=== PATIENT | male | born 1975 | race Caucasian/White ===

== ENCOUNTER 2016-12-25 19:14 | Inpatient (IN) | payer OTHER ==
[~2016-12-25] VITALS: Ht 167.6 cm; Wt 92.9 kg
[2016-12-25] MEDS ORDERED: NS 1,000 ML IV ONE (21:00)
[2016-12-25] MEDS ORDERED: ONDANSETRON 4MG/2ML VIAL (J2405) IV ONE (21:00)
[2016-12-25] MEDS ORDERED: MORPHINE 4 MG/ML 1ML SYRINGE IV PRN (21:00)
[2016-12-25 21:20] LABS: BASO % 0.2 % (0.0-1.0); EOS # 0.1 10^3/uL (0.0-0.50); EOS % 0.6 % (0.0-3.0); IMMATURE GRANULOCYTE % 0.6 % (0-0); LYMPH % 6.6 % (24.0-44.0); MEAN CORPUSCULAR HEMOGLOBIN 30.8 pg (27.0-33.0); MEAN CORPUSCULAR VOLUME 90.3 fl (80.0-96.0); MONO # 1.1 10^3/uL (0.0-0.8); MONO % 7.4 % (0.0-5.0); NEUTROPHILS # 12.2 10^3/uL (1.8-7.7); NEUTROPHILS % 84.6 % (36.0-66.0); PLATELET COUNT, AUTOMATED 280 10^3/uL (150-450); RED CELL DISTRIBUTION WIDTH 12.9 % (11.5-14.5); WHITE BLOOD COUNT 14.4 10^3/uL (4.0-10.0)
[2016-12-25 21:41] LABS: ALBUMIN 3.8 GM/DL (3.2-5.2); ALBUMIN/GLOBULIN RATIO 0.81 (1.00-1.93); ALKALINE PHOSPHATASE 98 U/L (45-117); ALT/SGPT 41 U/L (12-78); ANION GAP 8 MEQ/L (8-16); AST/SGOT 14 U/L (15-37); BILIRUBIN,DIRECT 0.4 MG/DL (0.0-0.2); BLOOD UREA NITROGEN 13 MG/DL (7-18); CALCIUM LEVEL 9.1 MG/DL (8.5-10.1); CARBON DIOXIDE LEVEL 28 MEQ/L (21-32); CHLORIDE LEVEL 97 MEQ/L (98-107); CREATININE FOR GFR 0.92 MG/DL (0.70-1.30); GLOMERULAR FILTRATION RATE > 60.0 (>60); GLUCOSE, FASTING 79 MG/DL (70-105); POTASSIUM SERUM 3.5 MEQ/L (3.5-5.1); SODIUM LEVEL 133 MEQ/L (136-145); TOTAL PROTEIN 8.5 GM/DL (6.4-8.2)
[2016-12-25] MEDS ORDERED: ISOVUE-370 76% 100ML VIAL (Q9967) As Ordered ONE (22:07)
[2016-12-25] MEDS ORDERED: metroNIDAZOLE 500 MG in APPROPRIATE DILUENT 1 EA IV ONE (23:15)
[2016-12-25] MEDS ORDERED: CIPROFLOXACIN 400 MG in APPROPRIATE DILUENT 1 EA IV ONE (23:15)
[2016-12-25] MEDS ORDERED: TYLE325T5 PO (23:16)
[2016-12-25] MEDS ORDERED: IBUPOTC PO (23:16)
[2016-12-26] MEDS ORDERED: KETOROLAC 30 MG/ML VIAL (J1885) IV PRN
[2016-12-26] MEDS ORDERED: NORCO, ANEXSIA 5/325MG TABLET (HYDROcodone/ACETAMINOPHEN) PO PRN
[2016-12-26] MEDS ORDERED: ERTAPENEM SODIUM 1 GM in NS MINI-BAG PLUS 50 ML IV SCH ×2
[2016-12-26] MEDS ORDERED: MORPHINE 2 MG/ML 1ML SYRINGE IV PRN
[2016-12-26] MEDS: ERTAPENEM SODIUM 1 GM in NS MINI-BAG PLUS 50 ML IV SCH ×2
[2016-12-26] MEDS ORDERED: ONDANSETRON 4MG/2ML VIAL (J2405) IV PRN
[2016-12-26] MEDS ORDERED: ACETAMINOPHEN TAB 650MG DOSE (2X325MG) PO PRN
[2016-12-26 01:01] VITALS: BP 129/79
[2016-12-26] MEDS: LR 1,000 ML IV SCH ×4 (01:17→18:10)
[2016-12-26] MEDS: HEPARIN SOD (PORCINE) 5000 UNITS/ML VIAL SC SCH ×3 (05:22→21:03)
[2016-12-26 06:00] VITALS: BP 107/67
[2016-12-26 06:12] LABS: BASO % 0.2 % (0.0-1.0); EOS # 0.1 10^3/uL (0.0-0.50); EOS % 1.1 % (0.0-3.0); IMMATURE GRANULOCYTE % 0.8 % (0-0); LYMPH # 0.9 10^3/uL (1.5-4.5); MEAN CORPUSCULAR HGB CONC 34.4 g/dl (32.0-36.5); MEAN CORPUSCULAR VOLUME 90.3 fl (80.0-96.0); MONO % 8.2 % (0.0-5.0); NEUTROPHILS # 10.4 10^3/uL (1.8-7.7); NEUTROPHILS % 82.7 % (36.0-66.0); PLATELET COUNT, AUTOMATED 256 10^3/uL (150-450); WHITE BLOOD COUNT 12.5 10^3/uL (4.0-10.0)
[2016-12-26 06:35] LABS: ANION GAP 8 MEQ/L (8-16); BLOOD UREA NITROGEN 10 MG/DL (7-18); CALCIUM LEVEL 8.3 MG/DL (8.5-10.1); CARBON DIOXIDE LEVEL 25 MEQ/L (21-32); CHLORIDE LEVEL 104 MEQ/L (98-107); CREATININE FOR GFR 0.78 MG/DL (0.70-1.30); GLOMERULAR FILTRATION RATE > 60.0 (>60); GLUCOSE, FASTING 83 MG/DL (70-105); POTASSIUM SERUM 3.8 MEQ/L (3.5-5.1); SODIUM LEVEL 137 MEQ/L (136-145)
[2016-12-26] MEDS: PANTOPRAZOLE 40MG INJ (PROTONIX) (C9113) IV SCH ×2 (08:36→20:22)
[2016-12-26] MEDS: SENOKOT S TAB PO SCH ×2 (08:36→20:22)
--- NOTE | 2016-12-26 13:04 | HPE ---
DATE OF ADMISSION: 12/25/2016 CHIEF COMPLAINT: Left lower quadrant pain. HISTORY OF PRESENT ILLNESS: Patient is a 41-year-old male presents with a history of left lower quadrant pain, for the past couple days. Pain has been getting continually worse. Denies any nausea, vomiting. No fevers or chills. No change in bowel movements or urination. No blood in the stool. He has never had any episodes like this in the past. No previous colonoscopy or known history of any colon problems in himself or his family. In the emergency room (ER), he had signs of a perforated sigmoid colon with a contained perforation, no abscess. Therefore, I was called to evaluate. He was admitted overnight. This morning, his pain is already improving with intravenous (IV) antibiotics, again, no nausea or vomiting or any problems with bowel movements or urination. No recent trauma or travel, and no previous episodes like this. PAST MEDICAL HISTORY: Negative. PAST SURGICAL HISTORY: Negative. ALLERGIES: PENICILLIN. HOME MEDICATIONS: None. SOCIAL HISTORY: Denies drug, alcohol, tobacco usage. FAMILY HISTORY: Noncontributory. REVIEW OF SYSTEMS: Pertinent positives and negatives stated in history of present illness (HPI). PHYSICAL EXAM: Generally, alert and oriented times three. No acute distress. VITAL SIGNS: Stable. Temperature 98.2, pulse 72, respirations 18, blood pressure 107/67, pulse oximetry 99% on room air. HEENT: Pupils equally round and reactive to light and accommodation. HEART: S1, S2. Regular rate and rhythm. LUNGS: Clear to auscultation bilaterally. ABDOMEN: Soft, nontender, nondistended. Bowel sounds positive. EXTREMITIES: No clubbing, cyanosis, or edema. LABS: White count 14.4 down to 12.5, hemoglobin 12.1, platelets 256, lactic acid 0.9, potassium 3.8. IMAGING: CT abdomen and pelvis demonstrates a slight pericolonic inflammation in the sigmoid colon with a few air bubbles all contained to the area. No signs of any free air throughout the rest of the abdomen. No signs of any phlegmon or abscess formation. ASSESSMENT/PLAN: Patient is a 41-year-old male with a contained complicated diverticulitis with a sigmoid perforation. Currently, he is tolerating medical management appropriately with intravenous (IV) fluids and antibiotics. On exam, he is almost completely nontender. Recommendation at this time is to start him on a clear liquid diet. As long as he continues to improve, by tomorrow, his white count comes down and he continues to have no pain, he will be discharged home tomorrow on a low-residue, low-fiber diet for 2 weeks and then will followup with me in the office in 2 weeks. We will switch him to a high-fiber diet and plan for an elective outpatient colonoscopy to confirm the diagnosis of diverticulosis. I explained the entire pathophysiology of diverticulosis and diverticulitis to him as well as the elective surgical options if this were to persist in the future. He understands and all of his questions were answered.
[2016-12-26 14:00] VITALS: BP 124/77
--- NOTE | 2016-12-26 15:38 | REP ---
Clinical: Acute right lower quadrant pain. Technique: Axial contrast enhanced images from the lung bases to the pubic symphysis using 100 ml Isovue 370 intravenous contrast material with coronal and sagittal re-formations. Findings: Sigmoid diverticulitis with contained perforation is appreciated (images 97 - 120). Findings include mural thickening to the midsigmoid colon at the site of diverticula with pericolonic inflammatory stranding and focal contained free air (images 105 - 110). No ascites or drainable collection/abscess identified. The remainder of the enteric system is without further acute process. A normal terminal ileum and appendix are identified in the right lower quadrant. Liver, spleen, pancreas, gallbladder, bilateral adrenal glands and kidneys are normal. Pelvis demonstrates normal bladder and age appropriate prostate/seminal vesicles. No pelvic fluid or ascites. No free air. No significant adenopathy. Abdominal aorta and vasculature without aneurysm or dissection. Surrounding musculoskeletal structures demonstrate age-related degenerative changes along with chronic L5 spondylolysis without spondylolisthesis. Lung bases are clear. Impression: 1. Acute perforated sigmoid diverticulitis with focal contained perforation/free air in the mesentery. No diffuse pneumoperitoneum, ascites or drainable collection/abscess. No bowel obstruction. 2. Chronic L5 spondylolysis without spondylolisthesis. Signed by Chalino Calvillo MD 12/26/2016 03:30 P
[2016-12-26 22:00] VITALS: BP 116/79
[2016-12-27] MEDS: ERTAPENEM SODIUM 1 GM in NS MINI-BAG PLUS 50 ML IV SCH ×2
[2016-12-27] MEDS: LR 1,000 ML IV SCH (04:06)
[2016-12-27] MEDS: HEPARIN SOD (PORCINE) 5000 UNITS/ML VIAL SC SCH (05:59)
[2016-12-27 06:00] VITALS: BP 117/83
[2016-12-27 06:12] LABS: MEAN CORPUSCULAR VOLUME 91.3 fl (80.0-96.0); PLATELET COUNT, AUTOMATED 315 10^3/uL (150-450); WHITE BLOOD COUNT 8.4 10^3/uL (4.0-10.0)
[2016-12-27 06:23] LABS: ANION GAP 7 MEQ/L (8-16); BLOOD UREA NITROGEN 7 MG/DL (7-18); CALCIUM LEVEL 8.6 MG/DL (8.5-10.1); CARBON DIOXIDE LEVEL 27 MEQ/L (21-32); CHLORIDE LEVEL 104 MEQ/L (98-107); GLOMERULAR FILTRATION RATE > 60.0 (>60); GLUCOSE, FASTING 91 MG/DL (70-105); POTASSIUM SERUM 3.8 MEQ/L (3.5-5.1); SODIUM LEVEL 138 MEQ/L (136-145)
[2016-12-27] MEDS ORDERED: INFLUENZA QUADRIVALENT PF VACCINE 0.5ML SYRINGE (90686) IM ONE (09:00)
[2016-12-27] MEDS: SENOKOT S TAB PO SCH (09:22)
[2016-12-27] MEDS: PANTOPRAZOLE 40MG INJ (PROTONIX) (C9113) IV SCH (09:22)
[2016-12-27] MEDS ORDERED: CIPR500T19 PO (09:42)
[2016-12-27] MEDS ORDERED: FLAG500T PO (09:42)
--- NOTE | 2016-12-28 13:15 | DSES ---
DATE OF ADMISSION: 12/25/2016 DATE OF DISCHARGE: 12/27/2016 ADMISSION DIAGNOSIS: Complicated diverticulitis. DISCHARGE DIAGNOSIS: Complicated diverticulitis. HOSPITAL COURSE: The patient is a 41-year-old male who presents on 12/25 with a chief complaint of sharp left lower quadrant pain. He was found to have a white count of 14.4 in the emergency room, as well as a CT scan that sure contained perforation of the sigmoid colon with diverticulitis and no signs of any abscess or phlegmon formation. He was admitted to the hospital that evening. I saw him in the morning of the . By this point, his pain was significantly improved and his white count was down to 12.5. He was on IV antibiotics and nothing by mouth and had no other complaints of any other symptoms. I did start him on a clear liquid diet and advised that he continue to get up and walk around, kept him on IV fluids and IV antibiotics. By the next morning, 12/27, his pain was almost completely resolved, tolerating diet, white count returned back to 8.4, passing gas. No bowel movement yet, but he was feeling very well. I had a discussion with him about staying on a low fiber, low residue diet for the next 2 weeks and then we would switch him to high fiber diet. He will be discharged home today with oral antibiotics to take for a week and then he will followup with me in the office in 2 weeks to be switched to his high fiber diet and also to schedule an outpatient elective colonoscopy to confirm the diagnosis of diverticulosis. All questions were answered. He was advised to call the office with any questions or any changes in his symptoms upon discharge.
== END 2016-12-27 11:30 | disposition home or self-care (01) | DRG 244 ==
LOC: M ED 19:14 → M ED INP 23:56 → M MSPAV 12-26 01:01
PROVIDERS: ADMIT Surgery; ATTEND Surgery
DX: K57.20 Diverticulitis of large intestine with perforation and abscess without bleeding (principal)

== ENCOUNTER 2017-02-02 08:21 | Day surgery (SDC) | payer OTHER ==
[~2017-02-02] VITALS: Ht 167.6 cm; Wt 87.1 kg
[~2017-02-02 08:21] MED LIST: CIPR500T19 PO; FLAG500T PO; IBUPOTC PO; TYLE325T5 PO
[2017-02-02] MEDS ORDERED: NS 1,000 ML IV ONE (08:30)
[2017-02-02] MEDS ORDERED: LIDOCAINE 2% INJ 100 MG/5 ML SDV (FOR ANES.) As Ordered ONE (09:14)
[2017-02-02] MEDS ORDERED: PROPOFOL 200 MG/20 ML VIAL As Ordered ONE ×2 (09:14→09:32)
--- NOTE | 2017-02-02 09:37 | ROOR ---
Patient Name: Kenneth Bates Procedure Date: 02/02/2017 9:12 AM Date of : 1975 Age: 41 Room: [id number] Gender: Male Note Status: Finalized Procedure: Colonoscopy Indications: Suspected diverticulitis Providers: Virgil Perez DO Referring MD: 1. No Referring Physician 1. No Referring Physician, Admin. Requesting Provider: Medicines: Propofol per Anesthesia Complications: No immediate complications. Procedure: Pre-Anesthesia Assessment: - Prior to the procedure, a History and Physical was performed, and patient medications and allergies were reviewed. The patient is competent. The risks and benefits of the procedure and the sedation options and risks were discussed with the patient. All questions were answered and informed consent was obtained. Patient identification and proposed procedure were verified by the physician, the nurse, the anesthesiologist and the guitar repair technician in the endoscopy suite. Mental Status Examination: alert and oriented. Airway Examination: normal oropharyngeal airway and neck mobility. Respiratory Examination: clear to auscultation. CV Examination: normal. Prophylactic Antibiotics: The patient does not require prophylactic antibiotics. Prior Anticoagulants: The patient has taken no previous anticoagulant or antiplatelet agents. ASA Grade Assessment: I - A normal, healthy patient. After reviewing the risks and benefits, the patient was deemed in satisfactory condition to undergo the procedure. The anesthesia plan was to use monitored anesthesia care (MAC). Immediately prior to administration of medications, the patient was re-assessed for adequacy to receive sedatives. The heart rate, respiratory rate, oxygen saturations, blood pressure, adequacy of pulmonary ventilation, and response to care were monitored throughout the procedure. The physical status of the patient was re-assessed after the procedure. The Colonoscope was introduced through the anus and advanced to the cecum, identified by appendiceal orifice and ileocecal valve. The colonoscopy was performed without difficulty. The patient tolerated the procedure well. Findings: An area of moderately congested mucosa was found in the sigmoid colon. Biopsies for histology were taken with a cold forceps from the sigmoid colon for evaluation of microscopic colitis. Estimated blood loss was minimal. The exam was otherwise without abnormality on direct and retroflexion views. Impression: - Congested mucosa in the sigmoid colon. Biopsied. - The examination was otherwise normal on direct and retroflexion views. Recommendation: - Patient has a contact number available for emergencies. The signs and symptoms of potential delayed complications were discussed with the patient. Return to normal activities tomorrow. Written discharge instructions were provided to the patient. - Telephone my office for pathology results in 1 week. Virgil Perez DO 02/02/2017 9:36:57 AM This report has been signed electronically. Number of Addenda: 0 Note Initiated On: 02/02/2017 9:12 AM Estimated Blood Loss: Estimated blood loss was minimal.
[2017-02-02 09:50] VITALS: BP 140/102
== END 2017-02-02 10:08 | disposition home or self-care (01) ==
LOC: M OPP 08:21
PROVIDERS: ATTEND Surgery
DX: K57.32 Diverticulitis of large intestine without perforation or abscess without bleeding (principal); K63.89 Other specified diseases of intestine; R10.32 Left lower quadrant pain; R19.7 Diarrhea, unspecified; R12 Heartburn; K21.9 Gastro-esophageal reflux disease without esophagitis; Z88.0 Allergy status to penicillin

== ENCOUNTER → 2017-07-12 | Outpatient (CLI) | payer OTHER | LOC: M ADAMS 15:47 | DX: S60.221A Contusion of right hand, initial encounter (principal) | CPT/HCPCS: 73130 ==

== ENCOUNTER → 2017-12-11 | Outpatient (CLI) | payer OTHER | LOC: M ADAMS 15:51 | DX: M25.572 Pain in left ankle and joints of left foot (principal) | CPT/HCPCS: 73610 ==

== ENCOUNTER 2022-09-02 19:51 | Emergency (ER) | payer OTHER ==
[~2022-09-02] VITALS: Ht 167.6 cm; Wt 97.2 kg
[2022-09-02] MEDS ORDERED: ISOVUE-370 76% 100ML VIAL As Ordered ONE (21:43)
[2022-09-02 22:24] LABS: BASO % 0.2 % (0.0-1.0); EOS # 0.2 10^3/uL (0.0-0.5); EOS % 1.4 % (0.0-3.0); HEMATOCRIT 43.2 % (42.0-52.0); HEMOGLOBIN 14.7 g/dl (13.5-17.5); LYMPH # 1.6 10^3/uL (1.5-5.0); LYMPH % 11.9 % (24.0-44.0); MEAN CORPUSCULAR HEMOGLOBIN 31.1 pg (27.0-33.0); MEAN CORPUSCULAR VOLUME 91.3 fl (80.0-96.0); MONO # 1.1 10^3/uL (0.0-0.8); MONO % 8.7 % (2.0-8.0); NEUTROPHILS # 10.2 10^3/uL (1.5-8.5); NEUTROPHILS % 77.4 % (36.0-66.0); PLATELET COUNT, AUTOMATED 296 10^3/uL (150-450); RED BLOOD COUNT 4.73 10^6/uL (4.30-6.10); WHITE BLOOD COUNT 13.1 10^3/uL (4.0-10.0)
[2022-09-02 22:40] LABS: ALBUMIN 4.2 G/DL (3.2-5.2); BILIRUBIN,DIRECT 0.4 MG/DL (<0.4); BILIRUBIN,TOTAL 1.2 MG/DL (0.3-1.2); TOTAL PROTEIN 7.3 G/DL (5.7-8.2)
[2022-09-02] MEDS ORDERED: metroNIDAZOLE (FLAGYL) 500MG TABLET PO ONE (23:30)
[2022-09-02] MEDS ORDERED: CIPROFLOXACIN 500MG TABLET PO ONE (23:30)
[2022-09-02] MEDS ORDERED: METR-265 PO (23:31)
[2022-09-02] MEDS ORDERED: CIPR-249 PO (23:31)
[2022-09-02 23:46] VITALS: BP 146/78; TEMP 98.8; O2SAT 98
== END 2022-09-02 23:50 | disposition home or self-care (01) ==
LOC: M ED 19:51
DX: K57.32 Diverticulitis of large intestine without perforation or abscess without bleeding (principal); K21.9 Gastro-esophageal reflux disease without esophagitis; Z87.442 Personal history of urinary calculi; Z87.19 Personal history of other diseases of the digestive system; Z88.0 Allergy status to penicillin
CPT/HCPCS: 74177; 80047; 80076; 81001; 83690; 85025; 99284; Q9967

== ENCOUNTER 2023-02-25 12:30 | Emergency (ER) | payer OTHER ==
[~2023-02-25] VITALS: Ht 167.6 cm; Wt 96.3 kg
[~2023-02-25 12:30] MED LIST changes: +CIPR-249 PO; +METR-265 PO
[2023-02-25 13:33] LABS: BASO % 0.2 % (0.0-1.0); EOS # 0.1 10^3/uL (0.0-0.5); EOS % 0.8 % (0.0-3.0); HEMATOCRIT 45.2 % (42.0-52.0); HEMOGLOBIN 15.3 g/dl (13.5-17.5); LYMPH # 1.7 10^3/uL (1.5-5.0); LYMPH % 10.9 % (24.0-44.0); MEAN CORPUSCULAR HEMOGLOBIN 31.2 pg (27.0-33.0); MEAN CORPUSCULAR HGB CONC 33.8 g/dl (32.0-36.5); MEAN CORPUSCULAR VOLUME 92.2 fl (80.0-96.0); MONO # 1.3 10^3/uL (0.0-0.8); MONO % 8.5 % (2.0-8.0); NEUTROPHILS # 12.3 10^3/uL (1.5-8.5); NEUTROPHILS % 79.2 % (36.0-66.0); PLATELET COUNT, AUTOMATED 315 10^3/uL (150-450); WHITE BLOOD COUNT 15.6 10^3/uL (4.0-10.0)
[2023-02-25 13:49] LABS: INR 1.02; PROTHROMBIN TIME 13.1 SECONDS (12.5-14.5)
[2023-02-25 13:50] LABS: PARTIAL THROMBOPLASTIN TIME 29.4 SECONDS (24.8-34.2)
[2023-02-25 13:53] LABS: LIPASE 27 U/L (12-53)
[2023-02-25 13:54] LABS: AMYLASE 57 U/L (30-118)
[2023-02-25 13:55] LABS: ALBUMIN 4.3 G/DL (3.2-5.2); ALKALINE PHOSPHATASE 86 U/L (46-116); ALT/SGPT 29 U/L (7.0-40); AST/SGOT 15 U/L (<34); BILIRUBIN,DIRECT 0.3 MG/DL (<0.4); BILIRUBIN,TOTAL 1.2 MG/DL (0.3-1.2); BLOOD UREA NITROGEN 11 MG/DL (9-23); CALCIUM LEVEL 9.6 MG/DL (8.5-10.1); CARBON DIOXIDE LEVEL 26 MMOL/L (20-31); CHLORIDE LEVEL 102 MMOL/L (98-107); CREATININE FOR GFR 0.73 MG/DL (0.70-1.30); GLOMERULAR FILTRATION RATE > 60.0 (>60); GLUCOSE, FASTING 99 MG/DL (60-100); POTASSIUM SERUM 4.1 MMOL/L (3.5-5.1); SODIUM LEVEL 138 MMOL/L (136-145); TOTAL PROTEIN 7.8 G/DL (5.7-8.2)
[2023-02-25] MEDS ORDERED: ISOVUE-370 76% 100ML VIAL As Ordered ONE (14:08)
[2023-02-25] MEDS ORDERED: KETOROLAC 30 MG/ML 1ML VIAL IV ONE (14:40)
[2023-02-25] MEDS ORDERED: LIDOCAINE 2% 5ML JELLY UROJET TOP ONE (14:40)
[2023-02-25] MEDS ORDERED: CIPROFLOXACIN 500MG TABLET PO ONE (16:15)
[2023-02-25] MEDS ORDERED: metroNIDAZOLE (FLAGYL) 500MG TABLET PO ONE (16:15)
[2023-02-25] MEDS ORDERED: METR-265 PO (16:25)
[2023-02-25] MEDS ORDERED: CIPR-249 PO (16:25)
[2023-02-25 17:37] VITALS: BP 159/85; TEMP 98.9; O2SAT 97
== END 2023-02-25 17:45 | disposition home or self-care (01) ==
LOC: M ED 12:30
DX: K57.32 Diverticulitis of large intestine without perforation or abscess without bleeding (principal); R33.9 Retention of urine, unspecified; Z88.0 Allergy status to penicillin; Z79.2 Long term (current) use of antibiotics; Z79.899 Other long term (current) drug therapy
CPT/HCPCS: 51702; 74177; 80048; 80076; 81001; 82150; 83605; 83690; 85025; 85610; 85730; 96374; 99284; J1885; Q9967

== ENCOUNTER → 2023-03-23 | Outpatient (REF) | payer OTHER ==
[2023-03-23 15:54] LABS: APPEARANCE, URINE CLEAR (CLEAR); BACTERIA, URINE AUTO NEGATIVE (NEGATIVE); BILIRUBIN, URINE AUTO NEGATIVE (NEGATIVE); BLOOD, URINE BLOOD 1+ (NEGATIVE); COLOR, URINE YELLOW (YELLOW); GLUCOSE, URINE (UA) AUTO NEGATIVE (NEGATIVE); KETONE, URINE AUTO NEGATIVE (NEGATIVE); LEUKOCYTE ESTERASE, URINE AUTO NEGATIVE (NEGATIVE); NITRITE, URINE AUTO NEGATIVE (NEGATIVE); PROTEIN, URINE AUTO NEGATIVE (NEGATIVE); RBC, URINE AUTO 1 /HPF (0-3); SPECIFIC GRAVITY URINE AUTO 1.024 (1.002-1.035); SQUAMOUS EPITHELIAL CELL UR AU 0 /HPF (0-6); UROBILINOGEN, URINE AUTO 0.2 mg/dL (0.0-2.0); WBC, URINE AUTO 0 /HPF (0-3)
== END ==
LOC: M SFHCWAGY 15:05
PROVIDERS: ATTEND Urology
DX: R31.29 Other microscopic hematuria (principal)

== ENCOUNTER → 2023-04-18 | Outpatient (REF) | payer OTHER ==
[2023-04-18 17:41] LABS: FERRITIN 280.8 NG/ML (10.5-307.3)
[2023-04-18 17:42] LABS: IMMUNOGLOBULIN A 260.2 MG/DL (40-350)
[2023-04-20 19:11] LABS: ENDOMYSIAL ABY IgA Negative (Negative); TISSUE TRANSGLUTAMINASE IgA <2 U/mL (0-3)
== END ==
LOC: M LAB REF 16:35
PROVIDERS: ATTEND Internal Medicine
DX: R10.13 Epigastric pain (principal)
CPT/HCPCS: 82728; 82784; 83550; 86231; 86364; G0103

== ENCOUNTER → 2023-10-07 | Outpatient (REF) | payer OTHER ==
[2023-10-07 13:16] LABS: APPEARANCE, URINE CLEAR (CLEAR); BACTERIA, URINE AUTO NEGATIVE (NEGATIVE); BILIRUBIN, URINE AUTO NEGATIVE (NEGATIVE); BLOOD, URINE BLOOD 1+ (NEGATIVE); COLOR, URINE YELLOW (YELLOW); GLUCOSE, URINE (UA) AUTO NEGATIVE (NEGATIVE); KETONE, URINE AUTO NEGATIVE (NEGATIVE); LEUKOCYTE ESTERASE, URINE AUTO NEGATIVE (NEGATIVE); NITRITE, URINE AUTO NEGATIVE (NEGATIVE); PROTEIN, URINE AUTO NEGATIVE (NEGATIVE); RBC, URINE AUTO 0 /HPF (0-3); SPECIFIC GRAVITY URINE AUTO 1.013 (1.002-1.035); SQUAMOUS EPITHELIAL CELL UR AU 0 /HPF (0-6); UROBILINOGEN, URINE AUTO 0.2 mg/dL (0.0-2.0); WBC, URINE AUTO 0 /HPF (0-3)
== END ==
LOC: M SMT 12:21
PROVIDERS: ATTEND Urology
DX: R31.29 Other microscopic hematuria (principal)

== ENCOUNTER 2024-04-03 06:32 | Day surgery (SDC) | payer OTHER ==
[~2024-04-03] VITALS: Ht 172.7 cm; Wt 95.1 kg
[~2024-04-03 06:32] MED LIST changes: +OMEP-173 PO
[2024-04-03] MEDS ORDERED: dexmedeTOMIDine (4MCG/ML)200MCG/50ML BTL (PRECEDEX) As Ordered ONE (07:41)
[2024-04-03] MEDS ORDERED: LIDOCAINE 2% 100MG/5ML SDV (FOR ANES.) As Ordered ONE (07:41)
[2024-04-03] MEDS ORDERED: propofoL 200 MG/20 ML VIAL As Ordered ONE (07:41)
[2024-04-03 07:54] VITALS: TEMP 98.3
[2024-04-03 08:12] VITALS: BP 134/86; O2SAT 98
== END 2024-04-03 08:35 | disposition home or self-care (01) ==
LOC: M OPP 06:32
PROVIDERS: ATTEND Internal Medicine Gastroenterology
DX: Z12.11 Encounter for screening for malignant neoplasm of colon (principal); K57.30 Diverticulosis of large intestine without perforation or abscess without bleeding; K64.8 Other hemorrhoids; Z88.0 Allergy status to penicillin; Z79.899 Other long term (current) drug therapy

== ENCOUNTER 2024-04-30 14:40 | Day surgery (SDC) | payer OTHER ==
[~2024-04-30] VITALS: Ht 172.7 cm; Wt 92.6 kg
[2024-04-30 18:14] LABS: BASO % 0.2 % (0.0-1.0); EOS % 0.2 % (0.0-3.0); HEMATOCRIT 42.9 % (42.0-52.0); HEMOGLOBIN 14.7 g/dl (13.5-17.5); LYMPH # 1.2 10^3/uL (1.5-5.0); LYMPH % 6.8 % (24.0-44.0); MEAN CORPUSCULAR HEMOGLOBIN 31.1 pg (27.0-33.0); MEAN CORPUSCULAR HGB CONC 34.3 g/dl (32.0-36.5); MEAN CORPUSCULAR VOLUME 90.9 fl (80.0-96.0); MONO # 0.9 10^3/uL (0.0-0.8); MONO % 5.3 % (2.0-8.0); NEUTROPHILS # 14.8 10^3/uL (1.5-8.5); NEUTROPHILS % 86.9 % (36.0-66.0); PLATELET COUNT, AUTOMATED 351 10^3/uL (150-450); RED BLOOD COUNT 4.72 10^6/uL (4.30-6.10)
[2024-04-30 18:40] LABS: LIPASE 33 U/L (12-53)
[2024-04-30 18:42] LABS: ALBUMIN 4.3 G/DL (3.2-5.2); ALKALINE PHOSPHATASE 90 U/L (40-129); ALT/SGPT 33 U/L (7.0-40); AST/SGOT 11 U/L (<34); BILIRUBIN,DIRECT 0.3 MG/DL (<0.4); BILIRUBIN,TOTAL 0.9 MG/DL (0.3-1.2); BLOOD UREA NITROGEN 15 MG/DL (9-23); CARBON DIOXIDE LEVEL 27 MMOL/L (20-31); CHLORIDE LEVEL 102 MMOL/L (98-107); CREATININE FOR GFR 0.68 MG/DL (0.70-1.30); GLOMERULAR FILTRATION RATE > 60.0 (>60); GLUCOSE, FASTING 101 MG/DL (60-100); POTASSIUM SERUM 4.1 MMOL/L (3.5-5.1); SODIUM LEVEL 138 MMOL/L (136-145); TOTAL PROTEIN 7.7 G/DL (5.7-8.2)
[2024-05-01] MEDS ORDERED: ISOVUE-370 76% 100ML VIAL As Ordered ONE (03:58)
[2024-05-01] MEDS: KETOROLAC 30 MG/ML 1ML VIAL IV ONE (04:06)
[2024-05-01] MEDS: cefTRIAXone SOD 2 GM in DEXTROSE 5% (D5W) ADV/MINI-BAG 50 ML IV ONE (06:23)
[2024-05-01] MEDS ORDERED: HOME MED LIST COMPLETE! XX SCH (07:50)
[2024-05-01] MEDS ORDERED: NORCO, ANEXSIA 5/325MG TABLET (HYDROcodone/ACETAMINOPHEN) PO PRN (09:55)
[2024-05-01] MEDS ORDERED: ONDANSETRON 4MG 2ML VIAL IV PRN ×3 (09:55→17:55)
[2024-05-01] MEDS ORDERED: MORPHINE 2 MG/ML 1ML VIAL IV PRN ×2 (09:55→17:55)
[2024-05-01] MEDS: NS (Normal Saline) 0.9% 1,000 ML IV SCH (10:48)
[2024-05-01] MEDS: CIPROFLOXACIN 400 MG in IV 1 EA IV SCH (10:48)
[2024-05-01] MEDS: KETOROLAC 30 MG/ML 1ML VIAL IV PRN (10:56)
[2024-05-01] MEDS: metroNIDAZOLE 500 MG in IV 1 EA IV SCH (12:12)
[2024-05-01 12:40] VITALS: BP 126/87; TEMP 97.7; O2SAT 97
[2024-05-01] MEDS ORDERED: METOCLOPRAMIDE INJ 10MG/2ML VIAL IV PRN (16:35)
[2024-05-01] MEDS ORDERED: LIDOCAINE 2% 100MG/5ML SDV (FOR ANES.) As Ordered ONE (17:17)
[2024-05-01] MEDS ORDERED: ONDANSETRON 4MG 2ML VIAL As Ordered ONE (17:17)
[2024-05-01] MEDS ORDERED: MIDAZOLAM INJ 2MG/2ML VIAL As Ordered ONE (17:17)
[2024-05-01] MEDS ORDERED: propofoL 200 MG/20 ML VIAL As Ordered ONE (17:17)
[2024-05-01] MEDS ORDERED: fentaNYL 250 MCG/5 ML INJECTION As Ordered ONE (17:17)
[2024-05-01] MEDS ORDERED: METOCLOPRAMIDE INJ 10MG/2ML VIAL As Ordered ONE (17:17)
[2024-05-01] MEDS ORDERED: ROCURONIUM BROMIDE 50MG/5ML VIAL As Ordered ONE (17:17)
[2024-05-01] MEDS ORDERED: ACETAMINOPHEN 1000MG/100ML IV BAG As Ordered ONE (17:20)
[2024-05-01] MEDS ORDERED: fentaNYL 100 MCG/2 ML INJECTION IV PRN (17:55)
[2024-05-01] MEDS ORDERED: oxyCODONE 5MG TAB PO PRN (17:55)
[2024-05-01 19:40] VITALS: BP 111/66; TEMP 98.1; O2SAT 94
[2024-05-01] MEDS: SENOKOT S TAB PO SCH (20:13)
[2024-05-01 20:15] VITALS: BP 100/58; TEMP 96.8; O2SAT 94
[2024-05-01 21:15] VITALS: BP 102/57; TEMP 96.7; O2SAT 90
[2024-05-01 22:15] VITALS: BP 109/59; TEMP 97.2; O2SAT 89
[2024-05-01 23:15] VITALS: BP 93/55; TEMP 97.1; O2SAT 90
[2024-05-02 00:15] VITALS: BP 99/61; TEMP 97.1; O2SAT 93
[2024-05-02 04:15] VITALS: BP 93/51; TEMP 97.5; O2SAT 97
[2024-05-02] MEDS: NORCO, ANEXSIA 5/325MG TABLET (HYDROcodone/ACETAMINOPHEN) PO PRN (05:57)
[2024-05-02 06:59] LABS: MEAN CORPUSCULAR HEMOGLOBIN 30.5 pg (27.0-33.0); MEAN CORPUSCULAR HGB CONC 32.9 g/dl (32.0-36.5); MEAN CORPUSCULAR VOLUME 92.7 fl (80.0-96.0); PLATELET COUNT, AUTOMATED 275 10^3/uL (150-450); RED BLOOD COUNT 3.97 10^6/uL (4.30-6.10); WHITE BLOOD COUNT 18.5 10^3/uL (4.0-10.0)
[2024-05-02 07:09] LABS: HEMATOCRIT 36.8 % (42.0-52.0); HEMOGLOBIN 12.1 g/dl (13.5-17.5)
[2024-05-02 07:19] LABS: ALKALINE PHOSPHATASE 70 U/L (40-129); ALT/SGPT 25 U/L (7.0-40); AST/SGOT 15 U/L (<34); BILIRUBIN,TOTAL 0.8 MG/DL (0.3-1.2); BLOOD UREA NITROGEN 12 MG/DL (9-23); CALCIUM LEVEL 7.6 MG/DL (8.5-10.1); CARBON DIOXIDE LEVEL 22 MMOL/L (20-31); CHLORIDE LEVEL 108 MMOL/L (98-107); CREATININE FOR GFR 0.76 MG/DL (0.70-1.30); GLOMERULAR FILTRATION RATE > 60.0 (>60); GLUCOSE, FASTING 120 MG/DL (60-100); POTASSIUM SERUM 4.6 MMOL/L (3.5-5.1); SODIUM LEVEL 139 MMOL/L (136-145); TOTAL PROTEIN 6.1 G/DL (5.7-8.2)
[2024-05-02 08:00] VITALS: BP 98/56; TEMP 97.8; O2SAT 95
[2024-05-02] MEDS ORDERED: METR-265 PO (09:10)
[2024-05-02] MEDS ORDERED: HYDR-3715 PO (09:10)
[2024-05-02] MEDS ORDERED: CIPR-249 PO (09:10)
[2024-05-02] MEDS: PANTOPRAZOLE 40MG TAB (PROTONIX) PO SCH (09:22)
== END 2024-05-02 11:05 | disposition home or self-care (01) ==
LOC: M ED 14:40 → M SDC 14:41 → M MS4PR 05-01 12:40 → M SDC 05-02 11:05
PROVIDERS: ATTEND Surgery
DX: K35.80 Unspecified acute appendicitis (principal); K57.92 Diverticulitis of intestine, part unspecified, without perforation or abscess without bleeding; Z79.899 Other long term (current) drug therapy; Z88.0 Allergy status to penicillin
CPT/HCPCS: 36415; 44970; 74177; 80048; 80053; 80076; 83605; 83690; 85025; 85027; 88304; 96365; 96366; 96367; 96375; 96376; 99285; J0131; J0665; J0696; J0744; J1100; J1836; J1885; J2250; J2405; J2765; J3010; Q9967

== ENCOUNTER → 2024-11-29 | Outpatient (REF) | payer OTHER ==
[~2024-11-29] MED LIST changes: +HYDR-3715 PO
== END ==
LOC: M LAB REF 17:23
PROVIDERS: ATTEND Internal Medicine
DX: Z79.899 Other long term (current) drug therapy (principal); Z82.49 Family history of ischemic heart disease and other diseases of the circulatory system